=== PATIENT | female | born 1935 | race African-American/Black ===

== ENCOUNTER 2016-12-12 11:57 | Inpatient (IN) | payer OTHER ==
--- NOTE | ~2016-12-12 | HP ---
History And Physical [place] [id number] [facility] [place]. [address] NAME: NATALIA HIGUERA : 35 STATUS : ADM Jaden PAT#: [id number] AGE: 81 ADM/REG DATE : 12/12/16 MR#: [id number] REPORT SERV DATE: 12/12/16 DICTATED BY: HOMERO STREET DATE: 12/12/16 REPORT STATUS : Draft TRANSCRIBED BY: MODSusan DATE: 12/12/16 DATE OF ADMISSION: 12/12/2016 SHAREPOINT ADMIN: Dr. Ambriz, but she said that she has not been to him for quite some time. HISTORY OF PRESENT ILLNESS: This is an 81-year-old female, who comes in for right hand incoordination. The patient has a history of cerebrovascular accident in the past, CHF, hypertension, diabetes, but has been doing well. She exercises every day, and she had a physical in November and she was told that everything was fine. She was just continued on her regular diabetes and hypertension medications. She said that her blood sugar ranges from 89 250 and a blood pressure of around 130/85. The patient woke up this morning feeling well, walked the dog and came back with a feeling like she is walking drunk and noticed that her right hand and arm seems to be detached from her body and not doing what she is wanting it to do. The patient noted a little bit of confusion, but still is able to know what she was doing. She was then brought to the emergency room and after a while, she is back to her normal self. The whole episode lasted for about an hour and a half. The ER physician did the workup. They did a chest x-ray showing borderline cardiomegaly. No acute cardiopulmonary abnormality. CTA of the brain and neck showed no acute intracranial abnormality, atrophy, chronic microvascular white matter ischemic change, old right MCA infarct. No significant arterial abnormalities are identified, although the evaluation of the [place] region is limited by motion, degenerative disk changes, and facet arthropathy with associated foraminal narrowing, and spinal canal narrowing at C4-C5. We are now called to admit the patient for observation. The patient denies any fever, chills, or sweats. No nausea and vomiting. No urinary or bowel changes. No near syncopal or syncopal episode or seizures. There is no new joint pains or rashes. No urinary or bowel changes, and the rest of the 14-point review of systems is negative except as above. PAST MEDICAL HISTORY: Includes history of CHF, diabetes, hypertension, old stroke. She had a , tubal ligation. ALLERGIES: SHE HAS NO KNOWN DRUG ALLERGIES. MEDICATIONS: Include aspirin, Coreg, Glucotrol, lisinopril, and Atarax. FAMILY HISTORY: Sister had diabetes, of stomach and throat cancer. SOCIAL HISTORY: The patient does not smoke, drink, or use recreational drugs. PHYSICAL EXAMINATION: GENERAL: The patient is alert and oriented x3, not in cardiopulmonary distress. VITAL SIGNS: Temperature of 98.2, blood pressure of 170/77, pulse rate of 81, respirations 16, saturating 100% on room air. NECK: She has a supple neck. No JVD or carotid bruits. No lymphadenopathy. HEENT: [place] conjunctivae. Anicteric sclerae. No pharyngeal erythema. LUNGS: Clear lungs. No rales, no wheezes. CARDIOVASCULAR: Regular rate and rhythm. No murmurs. History And Physical [address] [address] NAME: NATALIA HIGUERA : 35 STATUS : ADM Jaden PAT#: [id number] AGE: 81 ADM/REG DATE : 12/12/16 MR#: [id number] REPORT SERV DATE: 12/12/16 DICTATED BY: HOMERO STREET DATE: 12/12/16 REPORT STATUS : Draft TRANSCRIBED BY: MODSusan DATE: 12/12/16 ABDOMEN: Positive bowel sounds. Soft, nontender. No masses. EXTREMITIES: Fair pulses. No edema. NEURO: Nonlocalizing. LABORATORY DATA: Reveals a glucose of 150. The rest of the chemistry and CBC is within normal limits. ASSESSMENT: 1. Transient ischemic attack with history of old right MCA infarct. 2. Hypertension. 3. Diabetes. 4. History of congestive heart failure. PLAN: The patient most likely had a TIA. We will check her lipids, hemoglobin A1c, and echocardiogram. We will increase her aspirin and start statins on her. We will continue her diabetic and blood pressure medications and adjust accordingly. We will get PT and OT involved. The patient hopefully will get all these tests and remain stable. A partner of mine will be following up with the patient starting tomorrow. This has been explained to the patient in front of the daughter, and they agreed and understood the plan. NIKKY/BRUCE Homero Street M.D. / [id number] CC: Cuco Fletcher M.D.
--- NOTE | ~2016-12-12 | DS ---
Discharge Summary [facility] [address] [place]. [address] NAME: NATALIA HIGUERA : 35 STATUS : DIS IN PAT#: [id number] AGE: 81 ADM/REG DATE : 12/12/16 MR#: [id number] REPORT SERV DATE: 12/16/16 DICTATED BY: HOMERO OREILLY DATE: 12/15/16 REPORT STATUS : Draft TRANSCRIBED BY: MODL DATE: 12/15/16 ADMISSION DATE: 12/12/2016 DISCHARGE DATE: 12/15/2016 DISCHARGE DIAGNOSES: 1. Acute ischemic stroke, left brain. 2. Chronic systolic congestive heart failure with left ventricular ejection fraction 20%, class 1 now. 3. Hypertension. 4. Diabetes mellitus type 2 with A1c 6.8%. HISTORY: About 9 a.m. on 12/12/2016, the patient began to notice that she had some numbness in her right hand and was also clumsy, she was dropping things, she felt a bit unsteady. She came to the emergency room at [facility] downw with these complaints. She underwent a CTA of the neck and brain in the emergency room. In the neck, there was no significant stenosis of the carotid or vertebral arteries. Intracranial arterial flow somewhat limited by motion, but no evidence of intracranial large vessel occlusion or significant stenosis or aneurysms or vascular malformation. There was atrophy and some chronic microvascular white matter changes and an old right middle cerebral artery stroke. Some degenerative changes noted in the cervical spine at C4-C5. MRI of the brain on 12/13/2016 revealed a small acute left posterior superior centrum semiovale infarction, no mass effect, no bleeding. There was superimposed extensive old bilateral deep white matter changes and there was described to be "an extensive old right frontoparietal infarct with large cortical MCA distribution and extensive bihemispheric gliosis." The patient's right hand coordination and strength improved, came back to her baseline. She is ambulatory. She had no problems swallowing, no problems speaking. PT and OT saw her. They recommend outpatient which is being arranged for home, since it is difficult for her to get transportation. She has a history of chronic systolic congestive heart failure. We got a new echocardiogram on 12/14/2016. She had left ventricular ejection fraction of 20% which is stable from echo, 11/02/2006, when it was 22%. She had a moderate left ventricular diastolic dysfunction. She had mild aortic mitral and tricuspid regurgitation. Her left atrial size of 3.3 cm. During her time here in the hospital, there has been no evidence of atrial fibrillation. We have added Lipitor statin to her medications to try to reduce her risk of future stroke. We have also put her on aspirin. DISCHARGE MEDICATIONS: Aspirin 81 mg daily, Lipitor 40 mg daily, Coreg 12.5 mg b.i.d., glipizide 5 mg p.o. daily, Zestril 20 mg daily (creatinine 0.96), Tylenol 650 q.6 hours p.r.n. pain, Adalat CC 30 mg p.o. daily, FOLLOWUP: She should follow up with her PCP, Dr. Helio Linares, within the next week or two. She should follow up with her underwriter solicitation director, Dr. Bertrand Ambriz, as per routine schedule. Discharge Summary [address] [address] NAME: NATALIA HIGUERA : 35 STATUS : DIS IN PAT#: [id number] AGE: 81 ADM/REG DATE : 12/12/16 MR#: [id number] REPORT SERV DATE: 12/16/16 DICTATED BY: HOMERO OREILLY DATE: 12/15/16 REPORT STATUS : Draft TRANSCRIBED BY: BRUCE DATE: 12/15/16 24 minutes spent today with the patient and discharge planning. DICTATED BY: Cuco Hinkle/BRUCE Homero Oreilly M.D. / [id number] CC: Cuco Hinkle M.D. Mitchell Mutter, M.D.
[2016-12-12 10:41] LABS: BASOPHILS 0.3 %; BASOPHILS ABSOLUTE 0.02 10/3/uL (0.0-0.16); EOSINOPHILS 1.7 %; EOSINOPHILS ABSOLUTE 0.13 10/3/uL (0.0-0.53); ER CBC TAT 0 Hrs 07 Mins; HEMATOCRIT 36.1 % (36.0-48.0); HEMOGLOBIN 12.2 g/dL (12.0-16.0); IMMATURE GRANULOCYTES 0.3 %; IMMATURE GRANULOCYTES ABSOLUTE 0.02 10/3/uL (0.0-0.11); LYMPHOCYTES 34.2 %; LYMPHOCYTES ABSOLUTE 2.57 10/3/uL (0.67-4.30); MANUAL DIFF NO %; MEAN CORPUS HGB CONC 33.8 g/dL (32.0-36.0); MEAN CORPUSCULAR HEMOGLOB 27.7 pg (26.0-34.0); MEAN PLATELET VOLUME 10.9 fL (9.2-13.0); MONOCYTES 7.2 %; MONOCYTES ABSOLUTE 0.54 10/3/uL (0.21-1.20); NEUTROPHILS 56.3 %; NEUTROPHILS ABSOLUTE 4.23 10/3/uL (2.02-8.40); PLATELET COUNT 286 10/3/uL (150-400); RBC DISTRIBUTION WIDTH 16.1 % (12.0-16.0); WHITE BLOOD CELLS 7.5 10/3/uL (4.5-10.5)
[2016-12-12 10:52] LABS: INTERNATIONAL NORMAL RATI 1.2 UNITS (-); PROTIME (NOT ORD) 15.4 SEC (12.0-14.5)
[2016-12-12 10:59] LABS: A/G RATIO 0.9 (0.7-1.9); ALBUMIN 3.4 G/DL (3.5-5.0); ALKALINE PHOSPHATASE 62 U/L (45-117); BUN (BLOOD UREA NITROGEN) 16 MG/DL (6-23); CALCIUM, SERUM 9.2 MG/DL (8.5-10.4); CHLORIDE, SERUM 109 MMOL/L (96-112); CO2 (CARBON DIOXIDE) 27 MMOL/L (24-34); CREATININE 0.96 MG/DL (0.55-1.02); GFR AFRICAN AMERICAN 64 ML/MIN (>=60); GFR NON AFRICAN AMERICAN 55 ML/MIN (>=60); GLOBULIN 3.8 G/DL (2.5-4.1); GLUCOSE, SERUM 150 MG/DL (60-99); POTASSIUM, SERUM 4.5 MMOL/L (3.5-5.3); SGOT(AST) 18 U/L (5-40); SGPT(ALT) 19 U/L (5-65); SODIUM, SERUM 143 MMOL/L (135-148); TOTAL BILIRUBIN 0.6 MG/DL (0-1.2); TOTAL PROTEIN 7.2 G/DL (6.0-8.5); TROPONIN I <0.02 NG/ML (<0.05)
[~2016-12-12 11:57] MED LIST: ADALAT CC30 MG PO; COREG12 PO; COUMADIN3 MG PO; COUMADIN6 MG PO; DIOV160 PO; GLUCOTRO10 PO; GLUCOTROL5 PO; HALF81 PO; NIFEDICAL XL30 MG PO; RESTORIL30 MG PO; ZESTRIL20 MG PO
[2016-12-12 15:52] LABS: ASCORBIC ACID (UR NOT ORDER) NEG (NEG); BILIRUBIN, URINE NEGATIVE (NEG); ER URINALYSIS TAT 0 Hrs 07 Mins; KETONE, URINE NEGATIVE (NEG); LEUKOCYTE ESTERASE(NOT OR NEG (NEG); NITRITE (URINE) NEG (NEG); WBC (NOT ORDERED) (RFLEX) < 1 (0-5)
[2016-12-12 17:36] LABS: TRIGLYCERIDE 91 MG/DL (< 150)
[2016-12-12 17:38] LABS: CHOL/HDL RATIO(NOT ORDER) 2.9 (0-5); CHOLESTEROL 197 MG/DL (< 200); HDL CHOLESTEROL 68 MG/DL (> 49); LDL CHOLESTEROL 111 MG/DL (< 130); NON-HDL CHOLESTEROL 129 MG/DL (< 160)
[2016-12-12 19:13] LABS: CK-MB 2.6 NG/ML; CPK 217 U/L (0-200); TROPONIN I <0.02 NG/ML (<0.05)
[2016-12-13 03:04] LABS: TROPONIN I <0.02 NG/ML (<0.05)
[2016-12-13 03:06] LABS: CK-MB 2.1 NG/ML; CPK 169 U/L (0-200)
[2016-12-13 10:55] LABS: CPK 162 U/L (0-200)
[2016-12-13 10:56] LABS: CK-MB 1.9 NG/ML
[2016-12-15] MEDS ORDERED: LIPITOR40 PO (09:40)
[2016-12-15] MEDS ORDERED: T PO (09:42)
== END 2016-12-15 12:56 | disposition home health service (06) | DRG 65 ==
LOC: ER 11:57 → 1SO 13:07
PROVIDERS: Hospitalist; Internal Medicine
DX: I63.9 Cerebral infarction, unspecified (principal); I50.22 Chronic systolic (congestive) heart failure; I11.0 Hypertensive heart disease with heart failure; E11.65 Type 2 diabetes mellitus with hyperglycemia; I08.3 Combined rheumatic disorders of mitral, aortic and tricuspid valves; Z79.82 Long term (current) use of aspirin; Z79.84 Long term (current) use of oral hypoglycemic drugs; Z79.899 Other long term (current) drug therapy; Z86.73 Personal history of transient ischemic attack (TIA), and cerebral infarction without residual deficits
CPT/HCPCS: 70496; 70498; 70544; 70551; 71010; 80053; 80061; 81001; 82550; 82553; 82962; 83036; 84484; 85025; 85610; 85730; 93005; 93306; 97161-GP; 97165-GO; 99285; A9270-GY; J0456; Q9967